=== PATIENT | female | born 1960 | race Caucasian/White ===

== ENCOUNTER 2016-11-06 10:37 | Day surgery (SDC) | payer BC ==
[2016-11-05 11:36] LABS: Basophils # (auto) 0 uL; Basophils % (auto) 0.7 % (0.0-2.0); Eosinophils # (auto) 0.2 uL; Eosinophils % (auto) 4.7 % (0.0-7.0); Hematocrit 37.1 % (36.0-46.0); Hemoglobin 12.1 g/dL (12.2-16.2); Lymphocytes # (auto) 1.7 uL; Lymphocytes % (auto) 38.8 % (10.0-50.0); Mean Corpuscular Hemoglobin 29.4 pg (28.0-32.0); Mean Corpuscular Hgb Conc. 32.6 g/dL (32.0-36.0); Mean Corpuscular Volume 90.1 fL (80.0-100.0); Mean Platelet Volume 8.1 fL (7.4-10.4); Monocytes # (auto) 0.3 uL; Monocytes % (auto) 7.7 % (0.0-12.0); Neutrophils # (auto) 2.1 uL; Neutrophils % (auto) 48.1 % (37.0-80.0); Platelet Count (auto) 310 10^3/uL (140-450); Red Cell Distribution Width 13.4 % (11.6-16.0); White Blood Cell 4.3 10^3/uL (4.4-10.8)
[2016-11-05 11:39] LABS: Urine Bilirubin Negative (Negative); Urine Blood TRACE /uL (Negative); Urine Color Yellow (Yellow); Urine Glucose Normal (Normal); Urine Ketone Negative (Negative); Urine Mucus FEW (None Seen); Urine Nitrite Negative (Negative); Urine RBC 4 /hpf (0 - 4); Urine Squamous Epithelial Cell FEW /hpf (<5); Urine Urobilinogen Normal (Negative)
[2016-11-05 11:49] LABS: INR 0.94 (0.9-1.15); Partial Thromboplastin Time 23.8 sec (22.64-33.71); Prothrombin Time 10.2 sec (9.37-12.3)
[2016-11-05 12:06] LABS: Albumin 3.6 g/dL (3.4-5.0); BUN/Creatinine Ratio 14.6; Bilirubin, Total 0.4 mg/dL (0.2-1.0); Calcium 8.6 mg/dL (8.5-10.1); Potassium 3.7 mmol/L (3.5-5.1); Total Protein 7.1 g/dL (6.4-8.2)
[~2016-11-06] VITALS: Ht 160 cm; Wt 89.8 kg
[~2016-11-06 10:37] MED LIST: LABE100T PO; NIFE60TA59 PO; [UNRECOGNIZED DRUG - CODE] PO
[2016-11-06] MEDS ORDERED: IOHEXOL 350 MG/ML 100ML IJ ONE (11:19)
[2016-11-06] MEDS ORDERED: ceFAZolin 1GM/50ML D5W 50 ML IV ONE (11:21)
[2016-11-06] MEDS ORDERED: NEOMYCIN-BACITRACIN-POLYM 15GM TOP OINT TOP ONE (13:09)
[2016-11-06] MEDS ORDERED: ceFAZolin 1GM VL ONE (13:09)
[2016-11-06] MEDS ORDERED: BUPIVACAINE 0.75% INJ 10ML MPV SDV IJ ONE (13:10)
[2016-11-06] MEDS ORDERED: fentaNYL CITRATE 100 MCG/2 ML VL ONE (14:16)
[2016-11-06] MEDS ORDERED: PROPOFOL 10 MG/ML 20 ML IV ONE (14:16)
[2016-11-06] MEDS ORDERED: MIDAZOLAM HCL 1MG/1ML-2 ML VIAL ONE (14:16)
[2016-11-06] MEDS ORDERED: ROCURONIUM 10MG/ML 10ML VIAL IV ONE (14:17)
[2016-11-06] MEDS ORDERED: ePHEDrine SULFATE 50 MG/ML AMP IV PRN (15:30)
[2016-11-06] MEDS ORDERED: hydrALAZINE HCL 20 MG/ML VL IV PRN (15:30)
[2016-11-06] MEDS ORDERED: ONDANSETRON HCL 4 MG/2 ML VIAL IV ONE (15:30)
[2016-11-06] MEDS ORDERED: fentaNYL CITRATE 100 MCG/2 ML VL IV ONE (16:00)
[2016-11-06 16:15] VITALS: BP 131/80
== END 2016-11-06 16:15 | disposition home or self-care (01) ==
LOC: SUR 10:37
PROVIDERS: ATTEND Podiatrist Foot & Ankle Surgery
DX: M20.41 Other hammer toe(s) (acquired), right foot (principal); M21.611 Bunion of right foot; J45.909 Unspecified asthma, uncomplicated; E66.9 Obesity, unspecified; Z90.49 Acquired absence of other specified parts of digestive tract; Z98.84 Bariatric surgery status
CPT/HCPCS: 28285; 28296; 36415; 71275; 73660; 76000; 80053; 81001; 85025; 85610; 85730; 88304; 88311; C1713; J0690; J2250; J2704; J3010; J3490; Q4137; Q9967

== ENCOUNTER 2017-02-24 05:57 | Day surgery (SDC) | payer BC ==
[2017-02-23 12:07] LABS: Urine Bilirubin Negative (Negative); Urine Blood Negative /uL (Negative); Urine Color Yellow (Yellow); Urine Glucose Normal (Normal); Urine Ketone Negative (Negative); Urine Nitrite Negative (Negative); Urine Urobilinogen >12.0 mg/dL (Negative); Urine pH 6.5 (5.0-8.0)
[2017-02-23 12:11] LABS: Basophils # (auto) 0 uL; Basophils % (auto) 0.8 % (0.0-2.0); CONDITION Y; Eosinophils # (auto) 0.2 uL; Eosinophils % (auto) 3.3 % (0.0-7.0); Hematocrit 38.6 % (36.0-46.0); Hemoglobin 12.7 g/dL (12.2-16.2); Lymphocytes # (auto) 1.7 uL; Lymphocytes % (auto) 33.2 % (10.0-50.0); Mean Corpuscular Hemoglobin 30.3 pg (28.0-32.0); Mean Corpuscular Hgb Conc. 32.8 g/dL (32.0-36.0); Mean Corpuscular Volume 92.2 fL (80.0-100.0); Mean Platelet Volume 8.2 fL (7.4-10.4); Monocytes # (auto) 0.5 uL; Monocytes % (auto) 9.2 % (0.0-12.0); Neutrophils # (auto) 2.7 uL; Neutrophils % (auto) 53.5 % (37.0-80.0); Platelet Count (auto) 318 10^3/uL (140-450); Red Cell Distribution Width 14.7 % (11.6-16.0); White Blood Cell 5.1 10^3/uL (4.4-10.8)
[2017-02-23 12:21] LABS: INR 0.94 (0.9-1.15); Partial Thromboplastin Time 24.7 sec (22.64-33.71); Prothrombin Time 10.2 sec (9.37-12.3)
[2017-02-23 12:32] LABS: Albumin 3.8 g/dL (3.4-5.0); BUN/Creatinine Ratio 12.7; Bilirubin, Total 0.5 mg/dL (0.2-1.0); Calcium 9.2 mg/dL (8.5-10.1); Potassium 3.3 mmol/L (3.5-5.1); Total Protein 7.5 g/dL (6.4-8.2)
[~2017-02-24] VITALS: Ht 157.5 cm; Wt 90.7 kg
[~2017-02-24 05:57] MED LIST changes: +ASPI81TA27 PO
[2017-02-24] MEDS ORDERED: LIDOCAINE 1% HCL (LOCAL ANESTH.) INJ 20ML MDV ONE ×2 (06:33→06:48)
[2017-02-24] MEDS ORDERED: ROPIVACAINE 0.5% (5MG/ML) 20ML AMPULE IJ ONE (06:33)
[2017-02-24] MEDS ORDERED: ceFAZolin 1GM VL ONE (06:33)
[2017-02-24] MEDS ORDERED: NEOMYCIN-BACITRACIN-POLYM 15GM TOP OINT TOP ONE (06:33)
[2017-02-24] MEDS ORDERED: BUPIVACAINE 0.75% INJ 10ML MPV SDV IJ ONE (06:33)
[2017-02-24] MEDS ORDERED: LIDOCAINE 2%HCL (LOCAL ANESTH.) INJ 20ML MDV ONE (06:34)
[2017-02-24] MEDS ORDERED: SUCCINYLCHOLINE CHLORIDE 20 MG/ML 10ML VIAL IV ONE (06:48)
[2017-02-24] MEDS ORDERED: ceFAZolin 1GM/50ML D5W 50 ML IV ONE (06:57)
[2017-02-24] MEDS ORDERED: ONDANSETRON HCL 4 MG/2 ML VIAL ONE (07:03)
[2017-02-24] MEDS ORDERED: PROPOFOL 10 MG/ML 20 ML IV ONE ×2 (07:03→08:12)
[2017-02-24] MEDS ORDERED: MIDAZOLAM HCL 1MG/1ML-2 ML VIAL ONE (07:03)
[2017-02-24] MEDS ORDERED: LIDOCAINE HCL 2 %PF INJ 10ML AMP IJ ONE (07:03)
[2017-02-24] MEDS ORDERED: fentaNYL CITRATE 100 MCG/2 ML VL ONE (07:03)
[2017-02-24] MEDS ORDERED: KETOROLAC TROMETH 30 MG/ML 1ML VIAL IV ONE (07:30)
[2017-02-24] MEDS ORDERED: HYDROmorphone HCL 2 MG/ML VL IV PRN (07:30)
[2017-02-24] MEDS ORDERED: METOCLOPRAMIDE HCL 5MG/ml INJ 2ml VIAL IV ONE (07:30)
[2017-02-24 09:08] VITALS: BP 123/75
== END 2017-02-24 09:08 | disposition home or self-care (01) ==
LOC: SUR 05:57
PROVIDERS: ATTEND Podiatrist Foot & Ankle Surgery
DX: M21.612 Bunion of left foot (principal); M20.12 Hallux valgus (acquired), left foot; Z88.6 Allergy status to analgesic agent; E66.9 Obesity, unspecified; Z87.891 Personal history of nicotine dependence; Z98.84 Bariatric surgery status; Z90.49 Acquired absence of other specified parts of digestive tract
CPT/HCPCS: 28296; 36415; 73620; 76000; 80053; 81003; 85025; 85610; 85730; C1713; J0330; J0690; J2001; J2250; J2405; J2704; J3010; J3490; L3260; Q4137